=== PATIENT | male | born 1965 | race Caucasian/White ===

== ENCOUNTER 2017-05-22 06:58 | Emergency (ER) | payer BC ==
--- NOTE | 2017-05-22 07:26 | EDM.PDOC ---
ED HPI GENERAL MEDICAL PROBLEM - General Chief Complaint: Back Pain or Injury Stated Complaint: BACK/LEG PAIN Time Seen by Provider: 05/22/17 07:05 Source of Information: Reports: Patient History Limitations: Reports: No Limitations - History of Present Illness INITIAL COMMENTS - FREE TEXT/NARRATIVE: The patient presents with right sided back pain that radiates down his right leg. This started after driving from [place] to [place] his daughter. He did not fall, lift or twist. He was just in his vehicle for a few hours. He had a hard time sleeping last night. He had trouble with his back in the past. He went to the chiropractor and that helped. He has no bowel or bladder problems. He has no numbness or weakness. He has some tingling down his right leg. Onset: Gradual Duration: Day(s): (Yesterday) Location: Reports: Back, Lower Extremity, Right Quality: Reports: Sharp Severity: Moderate Improves with: Reports: None Worsens with: Reports: Movement Context: Reports: Other (Drove from [place]) Associated Symptoms: Reports: No Other Symptoms Lower Back Pain Score (Numeric/FACES): 9 - Related Data Allergies Allergy/AdvReac Type Severity Reaction Status Date / Time No Known Allergies Allergy Verified 05/22/17 07:02 Home Meds: Home Meds Cyclobenzaprine [Flexeril] 10 mg PO TID PRN #20 tablet 05/22/17 [Rx] Fluticasone/Salmeterol [Advair Diskus 250-50] 2 puff IH DAILY 05/22/17 [History] Hydrocodone/Acetaminophen [Hydrocodon-Acetaminophen 5-325] 1 - 2 each PO Q6HR PRN #20 tablet 05/22/17 [Rx] Naproxen Sodium [Aleve] 220 mg PO BID PRN 05/22/17 [History] Past Medical History Respiratory History: Reports: Asthma Social & Family History - Tobacco Use Smoking Status *Q: Current Every Day Smoker Years of Tobacco use: 40 Packs/Tins Daily: 0.5 - Recreational Drug Use Recreational Drug Use: No ED ROS GENERAL - Review of Systems Review Of Systems: See Below Constitutional: Reports: No Symptoms HEENT: Reports: No Symptoms Respiratory: Reports: No Symptoms Cardiovascular: Reports: No Symptoms Endocrine: Reports: No Symptoms GI/Abdominal: Reports: No Symptoms : Reports: No Symptoms Musculoskeletal: Reports: Back Pain ED EXAM,LOWER BACK PAIN/INJURY - Physical Exam Exam: See Below Exam Limited By: No Limitations General Appearance: Alert, No Apparent Distress Ears: Normal External Exam Nose: Normal Inspection Head: Atraumatic, Normocephalic Neck: Normal Inspection Respiratory/Chest: No Respiratory Distress, Lungs Clear, Normal Breath Sounds Cardiovascular: Regular Rate, Rhythm, No Edema, No Murmur GI/Abdominal: Soft, Non-Tender, No Organomegaly, No Mass Back Exam: Other (Pain upon palpation to the right lower back.) Extremities: Normal Inspection Neurological: Alert, Normal Reflexes, No Motor/Sensory Deficits, Oriented x 3 Course - Vital Signs Last Recorded V/S: Last Vital Signs Temp 96 F 05/22/17 06:59 Pulse 71 05/22/17 06:59 Resp 22 H 05/22/17 06:59 BP Pulse Ox 95 05/22/17 06:59 Departure - Departure Time of Disposition: 19:25 Disposition: Home, Self-Care 01 Condition: Good Clinical Impression: Low back pain Qualifiers: Chronicity: acute Back pain laterality: right Sciatica presence: with sciatica Sciatica laterality: sciatica of right side Qualified Code(s): M54.41 - Lumbago with sciatica, right side - Discharge Information Prescriptions: Hydrocodone/Acetaminophen [Hydrocodon-Acetaminophen 5-325] 1 - 2 each PO Q6HR PRN #20 tablet PRN Reason: Pain Cyclobenzaprine [Flexeril] 10 mg PO TID PRN #20 tablet PRN Reason: Pain Referrals: Dahlia Evangelista PA [[facility]] - 1 Week Forms: ED Department Discharge Additional Instructions: Take the flexeril and hydrocodone as needed for pain. You may also take an antiinflammatory such as motrin or aleve. Do not lift anything very heavy. Try a chiropractor. If that does not help, follow up with Dahlia Prado. Please return if you get worse such as more pain, numbness in the groin area and trouble urinating or moving your bowels.
[2017-05-22] MEDS ORDERED: Ketorolac 60 MG/2 ML SDV IM ONE (07:35)
[2017-05-22 07:51] VITALS: BP 132/98
== END 2017-05-22 07:43 | disposition home or self-care (01) ==
LOC: JD.ED 06:58
DX: M54.41 Lumbago with sciatica, right side (principal); J45.909 Unspecified asthma, uncomplicated; F17.210 Nicotine dependence, cigarettes, uncomplicated; Z79.899 Other long term (current) drug therapy
CPT/HCPCS: 96372; 99283; J1885